=== PATIENT | male | born 1950 | race Hispanic/Latino ===

== ENCOUNTER → 2019-10-20 | Outpatient (CLI) | payer MEDICARE | END | disposition home or self-care (01) | LOC: RAH 10:57 | PROVIDERS: ATTEND Nurse Practitioner Family | DX: M51.26 Other intervertebral disc displacement, lumbar region (principal); M51.25 Other intervertebral disc displacement, thoracolumbar region; M48.061 Spinal stenosis, lumbar region without neurogenic claudication; M43.16 Spondylolisthesis, lumbar region | CPT/HCPCS: 72148 ==

== ENCOUNTER 2020-02-11 08:08 | Observation (INO) | payer MEDICARE ==
[2020-02-10 15:17] VITALS: BP 157/80; PULSE 71; RESP 19
--- NOTE | 2020-02-10 15:48 | NUR ---
MEDS INFORMED DR. LOVELACE PT STILL TAKING MELOXICAM. NO ORDERS RECEIVED. PROCEED WITH PLANNED PROCEDURE.
[2020-02-11] VITALS (18 sets, daily range): BP systolic 112–149; BP diastolic 45–84; PULSE 46–80; RESP 12–19; TEMP 96.3–98.7
[~2020-02-11] VITALS: Ht 180.3 cm; Wt 97.6 kg
[2020-02-11] MEDS ORDERED: SODIUM CHLORIDE 0.9% 1000ML 1,000 ML IV ONE (08:50)
[2020-02-11] MEDS: CEFAZOLIN SODIUM 1 GM VIAL IVP ONE ×2 (09:13→11:05)
[2020-02-11] MEDS ORDERED: CELECOXIB 200 MG CAP ONE (09:15)
[2020-02-11] MEDS ORDERED: KETOROLAC TROMETHAMINE 15MG/ML ONE (09:15)
[2020-02-11] MEDS ORDERED: ACETAMINOPHEN EXTRA STRENGTH 500 MG TABLET ONE (09:15)
[2020-02-11] MEDS ORDERED: CEFAZOLIN SODIUM 1 GM VIAL ONE (10:50)
[2020-02-11] MEDS ORDERED: LIDOCAINE PF 2% 5ML ABBOJECT ONE (10:53)
[2020-02-11] MEDS ORDERED: MIDAZOLAM HCL 1 MG/ML 2ML VIAL ONE (10:54)
[2020-02-11] MEDS ORDERED: GLYCOPYRROLATE 1 MG/5 ML SYRINGE ONE ×2 (10:54→15:05)
[2020-02-11] MEDS ORDERED: NEOSTIGMINE 5MG/5ML SYR IV ONE (10:54)
[2020-02-11] MEDS ORDERED: ROCURONIUM 10MG/1ML SYR 10 MG/ML ML ONE (10:54)
[2020-02-11] MEDS ORDERED: ONDANSETRON HCL 4 MG/2 ML VIAL ONE (10:54)
[2020-02-11] MEDS ORDERED: TRANEXAMIC ACID 1000MG/10ML ONE ×2 (10:54→15:28)
[2020-02-11] MEDS ORDERED: PROPOFOL 10 MG/ML 20ML VIAL IV ONE (10:54)
[2020-02-11] MEDS ORDERED: FENTANYL CITRATE PF 50 MCG/1 ML 2ML VIAL ONE ×3 (11:02→12:16)
[2020-02-11] MEDS ORDERED: SUCCINYLCHOLINE CHLORIDE 20 MG/ML 10 ML VIAL ONE (11:02)
[2020-02-11] MEDS ORDERED: ROPIVACAINE 0.5% 5MG/ML 30ML IJ ONE (11:08)
[2020-02-11] MEDS ORDERED: EPHEDRINE SULFATE 50 MG/ML AMPULE ONE (11:42)
[2020-02-11] MEDS ORDERED: DiphenhydrAMINE HCL 50 MG/ML VIAL IVP PRN (13:45)
[2020-02-11] MEDS ORDERED: CALCIUM CARBONATE 500 MG TABLET PO PRN (13:45)
[2020-02-11] MEDS ORDERED: KETOROLAC TROMETHAMINE 15MG/ML IV PRN (13:45)
[2020-02-11] MEDS ORDERED: TEMAZEPAM 15 MG CAPSULE PO PRN (13:45)
[2020-02-11] MEDS ORDERED: FERROUS FUMARATE 324 MG TABLET PO PRN (13:45)
[2020-02-11] MEDS ORDERED: OXYCODONE HCL 5 MG TAB PO PRN (13:45)
[2020-02-11] MEDS ORDERED: POTASSIUM CHLORIDE 10% ELIXIR 20 MEQ/15 ML UDCUP PO PRN (13:45)
[2020-02-11] MEDS ORDERED: LIDOCAINE HCL-MPF 1% 2ML VIAL IV PRN (13:45)
[2020-02-11] MEDS ORDERED: TRAMADOL HCL 50 MG TABLET PO PRN (13:45)
[2020-02-11] MEDS ORDERED: POTASSIUM CHLORIDE 20 MEQ ERTAB PO PRN (13:45)
[2020-02-11] MEDS ORDERED: POTASSIUM CHLORIDE 20MEQ/100ML 100 ML IV PRN (13:45)
[2020-02-11] MEDS ORDERED: ONDANSETRON HCL 4 MG/2 ML VIAL IVP PRN (13:45)
[2020-02-11] MEDS: ACETAMINOPHEN EXTRA STRENGTH 500 MG TABLET PO SCH ×2 (13:45→20:14)
--- NOTE | 2020-02-11 14:59 | NUR ---
CALL PLACED FOR DISCHARGE PLANNING TO [facility], [facility]- NO ANSWER, MESSAGE LEFT
[2020-02-11] MEDS ORDERED: MEPERIDINE-PF 25 MG/ML SYG ONE (15:13)
--- NOTE | 2020-02-11 16:11 | NUR ---
cm note call made to pt's spouse liam tucker, she states pt resides at home with her. pt is independent with adls, and uses cane for ambulation. no home provider. no home health. informed of md orders for HH and DME walker and [place] [facility] [place] in agreement for referral to [facility] and [facility] as long as in network providers. referral faxed to [facility], and [facility]. Addendum: 02/11/20 at 1614 by AALIYAH IZAGUIRRE CM Amended: Links added.
[2020-02-11] MEDS: INSULIN HUMULIN R 100 UNIT/ML 3ML SQ SCH ×2 (16:30→20:15)
--- NOTE | 2020-02-11 16:45 | NUR ---
cm note spoke to bill hawkins with [facility]# [phone] and states pt is accepted, and nurse can call report over the weekend. also call made to [facility] and spoke to [place] hawkins and states they are in network with [employer]. but, they will have to verify coverage for pt. and states they are no open on the weekends. will not be able to deliver until friday once verified.
[2020-02-11] MEDS: SODIUM CHLORIDE 0.9% 1000ML 1,000 ML IV SCH ×2 (17:27→23:28)
--- NOTE | 2020-02-11 17:40 | NUR ---
cm note [facility] and states possibly will be able to deliver dme to pt. will let cm know tomorrow.
[2020-02-11] MEDS: CEFAZOLIN SODIUM 1 GM VIAL IVP SCH (18:17)
[2020-02-11] MEDS: ASPIRIN 81MG TAB.CHEW PO SCH (20:13)
[2020-02-11] MEDS: FAMOTIDINE 20MG TAB 20 MG TAB PO SCH (20:13)
[2020-02-11] MEDS: CELECOXIB 200 MG CAP PO SCH (20:13)
[2020-02-11] MEDS: OXYCODONE HCL 5 MG TAB PO PRN (20:15)
[2020-02-11] MEDS: GEMFIBROZIL 600 MG TABLET PO SCH (20:40)
[2020-02-11] MEDS ORDERED: GABAPENTIN 300 MG CAPSULE PO SCH (21:00)
[2020-02-12] VITALS: BP 155/80; PULSE 91; RESP 19; TEMP 99.3
[2020-02-12] MEDS: CEFAZOLIN SODIUM 1 GM VIAL IVP SCH (01:49)
[2020-02-12 03:44] VITALS: BP 155/83; PULSE 95; RESP 19; TEMP 98.8
[2020-02-12] MEDS: ACETAMINOPHEN EXTRA STRENGTH 500 MG TABLET PO SCH ×2 (06:03→14:02)
[2020-02-12] MEDS: INSULIN HUMULIN R 100 UNIT/ML 3ML SQ SCH ×2 (06:03→11:30)
[2020-02-12 07:30] VITALS: BP 112/62; PULSE 83; RESP 20; TEMP 98.8
[2020-02-12] MEDS ORDERED: METFORMIN HCL 500 MG TABLET PO SCH (09:00)
[2020-02-12] MEDS ORDERED: POLYETHYLENE GLYCOL 3350 17 GM POWD.PACK PO SCH (09:00)
[2020-02-12] MEDS ORDERED: LOSARTAN 100 MG TABLET PO SCH (09:00)
[2020-02-12] MEDS ORDERED: TAMSULOSIN HCL 0.4 MG CAP.ER.24H PO SCH ×2 (09:00)
[2020-02-12] MEDS: FAMOTIDINE 20MG TAB 20 MG TAB PO SCH (09:04)
[2020-02-12] MEDS: OXYCODONE HCL 5 MG TAB PO PRN (09:04)
[2020-02-12] MEDS: GEMFIBROZIL 600 MG TABLET PO SCH (09:04)
[2020-02-12] MEDS: CELECOXIB 200 MG CAP PO SCH (09:04)
[2020-02-12] MEDS: ASPIRIN 81MG TAB.CHEW PO SCH (09:04)
[2020-02-12] MEDS: SODIUM CHLORIDE 0.9% 1000ML 1,000 ML IV SCH (09:05)
--- NOTE | 2020-02-12 11:45 | NUR ---
cm note per primary nurse, pt has his walker and 3 in 1 [facility], was delivered to room today. also updated nurses pt accepted by [facility] and can call report at [place].
[2020-02-14] MEDS ORDERED: BISACODYL 10 MG SUPP.RECT RC PRN (13:45)
== END 2020-02-12 17:14 | disposition home health service (06) ==
LOC: DAH 08:08 → 3DH 08:09
PROVIDERS: ADMIT Orthopaedic Surgery; ATTEND Orthopaedic Surgery
DX: M16.11 Unilateral primary osteoarthritis, right hip (principal)
CPT/HCPCS: 27130; 36415 ×3; 73503; 80048 ×2; 81003; 82948 ×4; 85025; 85027; 85610; 86850 ×2; 86900 ×2; 86901 ×2; 87641; 88304; 88311; 96374; 97039 ×3; 97116 ×2; 97161; A4215; A4221; A4222; A4223; A4600 ×2; A4649 ×5; A4663; A4930; A9272; C1769; C1776; G0378 ×34; G8978; G8979; G8980; G8981; G8982; G8983; J0330; J0690 ×4; J1885; J2001; J2175; J2250; J2405; J2704; J2710; J2795; J3010 ×3; J3490 ×5; J7030 ×2

== ENCOUNTER 2021-03-09 09:00 | Observation (INO) | payer OTHER ==
[~2021-03-09] VITALS: Ht 179.1 cm; Wt 101.1 kg
[~2021-03-09 09:00] MED LIST: GEMF600T89 PO; LOSA100T58 PO; METF-444 PO; TAMS-1 PO
[2021-03-09 10:49] LABS: BASOPHILS % (AUTO) 0.3 % (0.0-5.0); EOSINOPHILS % (AUTO) 3.4 % (0.0-8.0); HEMATOCRIT 41.6 % (42-54); LYMPHOCYTES % (AUTO) 29.8 % (21.0-51.0); MEAN CORPUSCULAR HEMOGLOBIN 34.9 pg (27.0-33.0); MEAN CORPUSCULAR HGB CONC 34.1 g/dL (32.0-36.0); MEAN CORPUSCULAR VOLUME 102.2 fL (79-99); NEUTROPHILS % (AUTO) 58.2 % (40.0-77.0); PLATELET COUNT (AUTO) 169 K/uL (130-400); RED BLOOD CELL COUNT(AUTO) 4.07 MIL/uL (4.50-6.20); RED CELL DISTRIBUTION WIDTH 12.7 % (11.0-15.5); WHITE BLOOD COUNT (AUTO) 6.7 K/uL (4.8-10.8)
[2021-03-09 10:53] LABS: APPEARANCE,URINE Clear (CLEAR); BILIRUBIN,URINE Negative (NEGATIVE); COLOR,URINE Yellow (YELLOW); GLUCOSE, URINE (UA) Negative (NEGATIVE); KETONES,URINE Negative (NEGATIVE); LEUKOCYTE ESTERASE ,URINE Negative (NEGATIVE); NITRATE,URINE Negative (NEGATIVE); OCCULT BLOOD,URINE Negative (NEGATIVE); PROTEIN,URINE Trace mg/dL (NEGATIVE); UROBILINOGEN,URINE 0.2 mg/dL (0.2-1.0)
[2021-03-09 10:54] LABS: CREATININE 1.3 mg/dL (0.5-1.5); POTASSIUM 4.6 mmol/L (3.5-5.1)
[2021-03-09 11:16] LABS: BACTERIA,URINE Rare /HPF (None Seen); RBC,URINE None Seen /HPF (0-1); SQUAMOUS EPITHELIAL CELL,UR 0-2 /HPF (0-2); WBC,URINE None Seen /HPF (0-1)
[2021-03-09 11:38] LABS: INR 1.08 (0.85-1.15); PROTHROMBIN TIME 11.7 SEC (9.6-11.6)
[2021-03-09 11:39] LABS: PARTIAL THROMBOPLASTIN TIME 29.5 SEC (26.3-35.5)
[2021-03-13 10:02] VITALS: BP 124/63
[2021-03-13] MEDS ORDERED: MELO15TA12 PO (10:27)
[2021-03-14] VITALS (23 sets, daily range): BP systolic 98–151; BP diastolic 53–78
[2021-03-14] MEDS: CEFAZOLIN SODIUM 1 GM VIAL IVP SCH ×3 (06:00→20:29)
[2021-03-14] MEDS ORDERED: 0.9%NACL 1000ML 1,000 ML IV ONE (09:26)
[2021-03-14] MEDS ORDERED: LIDOCAINE PF 100MG/5ML (2%) SYRINGE 5ML ONE ×2 (10:51→10:52)
[2021-03-14] MEDS ORDERED: SUCCINYLCHOLINE CHLORIDE 20 MG/ML 10 ML VIAL ONE (10:51)
[2021-03-14] MEDS ORDERED: FENTANYL CITRATE PF 50 MCG/1 ML 2ML VIAL ONE (10:52)
[2021-03-14] MEDS ORDERED: ONDANSETRON 4MG INJ ONE (10:52)
[2021-03-14] MEDS ORDERED: MIDAZOLAM HCL 1 MG/ML 2ML VIAL ONE (10:52)
[2021-03-14] MEDS ORDERED: NEOSTIGMINE 5MG/5ML SYR IV ONE (10:52)
[2021-03-14] MEDS ORDERED: GLYCOPYRROLATE 1 MG/5 ML SYRINGE ONE (10:52)
[2021-03-14] MEDS ORDERED: PROPOFOL 10 MG/ML 20ML VIAL IV ONE (10:52)
[2021-03-14] MEDS ORDERED: ROCURONIUM 10MG/1ML SYR 10 MG/ML ML ONE ×2 (10:52→12:45)
[2021-03-14] MEDS ORDERED: TRANEXAMIC ACID 1000MG/10ML ONE ×2 (11:25→16:28)
[2021-03-14] MEDS ORDERED: CEFAZOLIN SODIUM 1 GM VIAL ONE ×2 (11:25→12:02)
[2021-03-14] MEDS ORDERED: EPHEDRINE SULFATE 50 MG/ML AMPULE ONE ×2 (12:04→14:09)
[2021-03-14] MEDS ORDERED: DiphenhydrAMINE HCL 50 MG/ML VIAL ONE (12:19)
[2021-03-14] MEDS ORDERED: PHENYLEPHRINE HCL 10 MG/ML 1ML VIAL IV ONE (14:39)
[2021-03-14] MEDS ORDERED: ONDANSETRON 4MG INJ IVP PRN (16:00)
[2021-03-14] MEDS ORDERED: OXYCODONE HCL 5 MG TAB PO PRN (16:00)
[2021-03-14] MEDS ORDERED: FERROUS FUMARATE 324 MG TABLET PO PRN (16:00)
[2021-03-14] MEDS ORDERED: LIDOCAINE HCL-MPF 1% 2ML VIAL IV PRN (16:00)
[2021-03-14] MEDS ORDERED: TEMAZEPAM 15 MG CAPSULE PO PRN (16:00)
[2021-03-14] MEDS: 0.9%NACL 1000ML 1,000 ML IV SCH (16:00)
[2021-03-14] MEDS ORDERED: TRAMADOL HCL 50 MG TABLET PO PRN (16:00)
[2021-03-14] MEDS ORDERED: POTASSIUM CHLORIDE 20MEQ/100ML 100 ML IV PRN (16:00)
[2021-03-14] MEDS ORDERED: KCL 20 MEQ ERTAB PO PRN (16:00)
[2021-03-14] MEDS: ACETAMINOPHEN 500 MG TABLET PO SCH (16:00)
[2021-03-14] MEDS ORDERED: DiphenhydrAMINE HCL 50 MG/ML VIAL IVP PRN (16:00)
[2021-03-14] MEDS ORDERED: POTASSIUM CHLORIDE 10% ELIXIR 20 MEQ/15 ML UDCUP PO PRN (16:00)
[2021-03-14] MEDS ORDERED: CALCIUM CARB 500MG PO PRN (16:00)
[2021-03-14] MEDS: INSULIN HUMULIN R 100 UNIT/ML 3ML SQ SCH ×2 (16:30→21:00)
[2021-03-14] MEDS ORDERED: MEPERIDINE-PF 25 MG/ML SYG ONE (16:40)
[2021-03-14] MEDS: OXYCODONE HCL 5 MG TAB PO PRN (20:07)
[2021-03-14] MEDS: PREGABALIN 25 MG CAP PO SCH (20:07)
[2021-03-14] MEDS: CELECOXIB 200 MG CAP PO SCH (20:07)
[2021-03-14] MEDS: FAMOTIDINE 20MG TAB PO SCH (20:08)
[2021-03-14] MEDS: GEMFIBROZIL 600 MG TABLET PO SCH (20:08)
[2021-03-14] MEDS: ASPIRIN 81MG CHEW TAB PO SCH (20:08)
[2021-03-15] VITALS: BP 124/64
[2021-03-15] MEDS: ACETAMINOPHEN 500 MG TABLET PO SCH ×3 (00:23→16:00)
[2021-03-15] MEDS: 0.9%NACL 1000ML 1,000 ML IV SCH ×2 (02:00→11:19)
[2021-03-15 04:00] VITALS: BP_SYST 114; BP_SYST 121; BP_DIAS 64; BP_DIAS 68
[2021-03-15] MEDS: CEFAZOLIN SODIUM 1 GM VIAL IVP SCH (04:18)
[2021-03-15 04:23] LABS: HEMATOCRIT 32.4 % (42-54); MEAN CORPUSCULAR VOLUME 102.9 fL (79-99); RED BLOOD CELL COUNT(AUTO) 3.15 MIL/uL (4.50-6.20); WHITE BLOOD COUNT (AUTO) 9.4 K/uL (4.8-10.8)
[2021-03-15 04:44] LABS: CREATININE 1.5 mg/dL (0.5-1.5); POTASSIUM 4.5 mmol/L (3.5-5.1)
[2021-03-15] MEDS: INSULIN HUMULIN R 100 UNIT/ML 3ML SQ SCH ×4 (07:30→20:54)
[2021-03-15 08:00] VITALS: BP 111/64
[2021-03-15] MEDS: POLYETHYLENE GLYCOL 3350 17 GM POWD.PACK PO SCH (08:51)
[2021-03-15] MEDS: PREGABALIN 25 MG CAP PO SCH ×2 (08:51→20:51)
[2021-03-15] MEDS: TAMSULOSIN HCL 0.4 MG CAP.ER.24H PO SCH (08:51)
[2021-03-15] MEDS: CELECOXIB 200 MG CAP PO SCH ×2 (08:51→20:51)
[2021-03-15] MEDS: FAMOTIDINE 20MG TAB PO SCH ×2 (08:51→20:52)
[2021-03-15] MEDS: GEMFIBROZIL 600 MG TABLET PO SCH ×2 (08:51→20:51)
[2021-03-15] MEDS: METFORMIN HCL 500 MG TABLET PO SCH (08:52)
[2021-03-15] MEDS: ASPIRIN 81MG CHEW TAB PO SCH ×2 (08:52→20:52)
[2021-03-15] MEDS: LOSARTAN 100 MG TABLET PO SCH (08:54)
[2021-03-15 12:00] VITALS: BP 116/54
[2021-03-15 16:00] VITALS: BP 99/56
[2021-03-15 20:00] VITALS: BP 126/63
[2021-03-15] MEDS: OXYCODONE HCL 5 MG TAB PO PRN (20:52)
[2021-03-16] VITALS: BP 118/67
[2021-03-16] MEDS: ACETAMINOPHEN 500 MG TABLET PO SCH ×2 (00:43→08:00)
[2021-03-16 04:00] VITALS: BP 107/63
[2021-03-16] MEDS: INSULIN HUMULIN R 100 UNIT/ML 3ML SQ SCH ×2 (06:44→11:30)
[2021-03-16 07:15] VITALS: BP 120/72
[2021-03-16] MEDS: CELECOXIB 200 MG CAP PO SCH (10:37)
[2021-03-16] MEDS: POLYETHYLENE GLYCOL 3350 17 GM POWD.PACK PO SCH (10:37)
[2021-03-16] MEDS: ASPIRIN 81MG CHEW TAB PO SCH (10:37)
[2021-03-16] MEDS: TAMSULOSIN HCL 0.4 MG CAP.ER.24H PO SCH (10:37)
[2021-03-16] MEDS: GEMFIBROZIL 600 MG TABLET PO SCH (10:37)
[2021-03-16] MEDS: PREGABALIN 25 MG CAP PO SCH (10:37)
[2021-03-16] MEDS: LOSARTAN 100 MG TABLET PO SCH (10:37)
[2021-03-16] MEDS: FAMOTIDINE 20MG TAB PO SCH (10:37)
[2021-03-16] MEDS: METFORMIN HCL 500 MG TABLET PO SCH (10:38)
[2021-03-16 10:54] VITALS: BP 123/69
[2021-03-16] MEDS ORDERED: ASPI-1005 PO (11:58)
[2021-03-16] MEDS ORDERED: HYDR-4060 PO (11:58)
[2021-03-16] MEDS: OXYCODONE HCL 5 MG TAB PO PRN (17:59)
[2021-03-17] MEDS ORDERED: BISACODYL 10 MG SUPP.RECT RC PRN (16:00)
== END 2021-03-16 17:00 | disposition home health service (06) ==
LOC: EDSTATUS 09:00 → DAHIP 03-14 09:08 → INTOOBSV 03-14 09:08 → OBSVTOIN 03-14 09:08 → 4AH 03-14 17:40
PROVIDERS: ADMIT Orthopaedic Surgery; ATTEND Orthopaedic Surgery
DX: M16.12 Unilateral primary osteoarthritis, left hip (principal); Z20.822 Contact with and (suspected) exposure to COVID-19; E11.9 Type 2 diabetes mellitus without complications; E78.00 Pure hypercholesterolemia, unspecified; Z96.641 Presence of right artificial hip joint; Z79.899 Other long term (current) drug therapy
CPT/HCPCS: 27130; 36415 ×2; 73503; 80048 ×2; 81001; 82948 ×10; 85025; 85027; 85610; 85730; 87088; 87635; 87641; 88304; 88311; 96361; 96374; 96376; 97039 ×4; 97116 ×4; 97161; 97530 ×3; A4215 ×2; A4221 ×2; A4222 ×2; A4223 ×2; A4649 ×5; A4663 ×2; A4930; A5120; A9272; C1769; C1776 ×2; G0378 ×47; G8978; G8979; G8980; G8981; G8982; G8983; J0330; J0690 ×5; J1200; J2001 ×2; J2175; J2250; J2370; J2405; J2704; J2710; J3010; J3490 ×5; J7030 ×2